=== PATIENT | male | born 1955 | race African-American/Black ===

== ENCOUNTER 2023-04-05 09:25 | Outpatient (AMB) | payer MEDICARE, SELFPAY ==
[2023-04-05 09:43] VITALS: BMI 34.6
--- NOTE | 2023-04-05 09:43 | A.OFFVIS_ITS ---
Intake VS Expanded 04/05/23 09:43 04/10/23 12:13 Height 5 ft 11 in 5 ft 11 in Weight 248 lb 0.321 oz 248 lb BMI 34.6 34.6 Intake Visit Reasons: New DM/LVM HPI Nutrition Presentation Details Pt presents for MNT for T2DM . The Pt was referred by Edmar Olmos Food frequency Fish: 0 to once a month Fruits: 2-3 per day Vegetables: 2 servings per day Dairy: 0-2 servings per day Starches: Greater than 25 servings per day Beverages: Water, juices, stopped drinking sodas for while Physical activity daily life activities Alcohol/smoking: Denies Multivitamins: Not taking JUF-Oiipszj-Yw.Jeor Equation Height 5 ft 11 in Weight 248 lb Resting Metabolic Rate 1926.27 Calculated Activity Level Mild Activity Calories Needed to Maintain Weight 2648.62 Diagnosis Nutrition problem #1 food nutri know defi As related to (etiology) #1 diagnosis As evidenced by (sign/symptom) #1 no prior educ - nutri rec Monitoring/Goals Nutrition problem monitoring level of knowledge/skill and glucose, fasting Nutrition goal/outcome list 3 CHO foods and list 3 high fiber foods Outcome progress verbalized understanding Learning/Education Readiness to learn good Stages of change preparation Educational materials provided Yes Most Recent Diabetes Results: No Data to Display Assessment & Plan Assessment & Plan (1) T2DM (type 2 diabetes mellitus): Code(s): E11.9 - Type 2 diabetes mellitus without complications Plan: Weight: 113 kg Est kcal needs as per MSJ: 2600 (40% carb, 30% protein/fat) Est fluid needs as per 30 ml/d: 3400 Est prot per day as per 1 g/kg bw: 113 Recommend fiber intake : 8-10 g per day and gradually increase to 25-28 g per day for women and 35-38 g for men or as tolerated Recommend sodium intake per day : less than 2000 mg Educated patient on: ( R = reviewed V = verbalizes understanding N/R = needs review N/A = not applicable * Food sources of carbohydrate, adequate serving sizes and its role in various health conditions: R * Differences between complex carbohydrates a simple carbohydrates, role of fiber in diet: R * Differences between types of fats and role in diet (mono on saturated fat fatty acids, saturated fatty acids, trans fats): NR * Food sources of sodium in salt and healthy modifications for heart health in kidney health: NR * Vitamins and minerals: NR * Healthy plate method concept: R * Physical activity: Benefits a precaution: R * Hypoglycemia protocol (rule of 15): NR * Dietary prevention of Hyperglycemia: R Patient Instructions: Work on reducing total carbohydrate at mealtime to less than 90 g following healthy plate method Practice mindful eating Keep hydrated by drinking water with meals and snacks See meal plan for ideas Coding Level of Care Code Nutr Indiv Intake (91267) Diagnoses T2DM (type 2 diabetes mellitus) E11.9 Time Spent (min) 30
[2023-04-10 12:13] VITALS: BMI 34.6
== END 2023-04-05 10:14 | disposition home or self-care (01) ==
PROVIDERS: PCP Internal Medicine; Visit Provider Dietitian, Registered
DX: E11.9 Type 2 diabetes mellitus without complications (principal)

== ENCOUNTER → 2023-04-05 09:25 | Outpatient (BNVA) | payer MEDICARE, SELFPAY | PROVIDERS: PCP Internal Medicine; Visit Provider Dietitian, Registered | DX: E11.9 Type 2 diabetes mellitus without complications (principal) | CPT/HCPCS: 97802 ==

== ENCOUNTER 2023-04-26 09:26 | Outpatient (AMB) | payer MEDICARE, SELFPAY ==
--- NOTE | 2023-04-26 09:28 | A.OFFVIS_ITS ---
Intake VS Expanded 04/26/23 09:32 05/02/23 14:18 Height 5 ft 11 in 5 ft 11 in Weight 240 lb 1.334 oz 240 lb BMI 33.5 33.5 Intake Visit Reasons: DM/LVM Medication List - Last Reconciled 05/02/[address], LDN aspirin (Adult Low Dose Aspirin) 81 mg PO DAILY hydrochlorothiazide 25 mg PO QDAY labetalol 200 mg PO BID lisinopril 40 mg PO DAILY metformin ER 500 mg PO DAILY rosuvastatin 20 mg PO DAILY vitamin E (dl, acetate) 45 mg PO DAILY HPI Nutrition Presentation Details Pt presents for MNT f/u for T2DM Pt did not bring glucometer to this appt. Pt reports working on reducing amount of starches/sugars Reports choosing low sugar beverages. B: coffee or crossaint with ham/egg/cheese or oatmeal with water and fruit L: baked chicken sand, small fries , diet soda d: pasta with chicken and salad, water snack: yogurts, chips, cracker w peanut butter physical activity : active at work on his fee [employer] Equation Height 5 ft 11 in Weight 240 lb Resting Metabolic Rate 1890.02 Calculated Activity Level Mild Activity Calories Needed to Maintain Weight 2598.78 Most Recent Diabetes Results: No Data to Display [facility] Medical History (Updated 05/02/23 @ 14:[address], LDN) Hyperlipidemia Hypertension Assessment & Plan Assessment & Plan (1) T2DM (type 2 diabetes mellitus): Comment: A1c at 8.9% on 01/2023), 8 lb weight loss since 03/2023( 6 wks) via diet modifications Code(s): E11.9 - Type 2 diabetes mellitus without complications Plan: Weight: 113 kg (03/2023), 109 kg (04/2023) Est kcal needs as per MSJ: 2600 (40% carb, 30% protein/fat) Est fluid needs as per 30 ml/d: 3400 Est prot per day as per 1 g/kg bw: 113 Recommend fiber intake : 8-10 g per day and gradually increase to 25-28 g per day for women and 35-38 g for men or as tolerated Recommend sodium intake per day : less than 2000 mg Educated patient on: ( R = reviewed V = verbalizes understanding N/R = needs review N/A = not applicable * Food sources of carbohydrate, adequate serving sizes and its role in various health conditions: R * Differences between complex carbohydrates a simple carbohydrates, role of fiber in diet: R * Differences between types of fats and role in diet (mono on saturated fat fatty acids, saturated fatty acids, trans fats): NR * Food sources of sodium in salt and healthy modifications for heart health in kidney health: R * Vitamins and minerals: R * Healthy plate method concept: R * Physical activity: Benefits a precaution: R * Hypoglycemia protocol (rule of 15): NR * Dietary prevention of Hyperglycemia: R , V Patient Instructions: Continue working on following healthy plate method , reducing on sugars/portion sizes of starches , total carb at meal to less than 80 g (3 meal/d) Choose low sodium food options , discussed and list of foods/meal options written and provided Monitor your blood sugar, fasting and 2 hours after a meal , bring to glucometer with you to your next appointment. Coding Level of Care Code Nutr Indiv Subseq (07949) Diagnoses T2DM (type 2 diabetes mellitus) E11.9 Time Spent (min) 30
[2023-04-26 09:32] VITALS: BMI 33.5
[2023-05-02 14:18] VITALS: BMI 33.5
== END 2023-04-26 10:09 | disposition home or self-care (01) ==
PROVIDERS: PCP Internal Medicine; Visit Provider Dietitian, Registered
DX: E11.9 Type 2 diabetes mellitus without complications (principal)

== ENCOUNTER → 2023-04-26 09:26 | Outpatient (BNVA) | payer MEDICARE, SELFPAY | PROVIDERS: PCP Internal Medicine; Visit Provider Dietitian, Registered | DX: E11.9 Type 2 diabetes mellitus without complications (principal) | CPT/HCPCS: 97803 ==

== ENCOUNTER 2023-06-07 08:56 | Outpatient (AMB) | payer MEDICARE, SELFPAY ==
[2023-06-07 09:08] VITALS: BMI 33.5
--- NOTE | 2023-06-07 09:08 | A.OFFVIS_ITS ---
Intake VS Expanded 06/07/23 09:08 Height 5 ft 11 in Weight 240 lb 1.334 oz BMI 33.5 Intake Visit Reasons: DM/LVM HPI Nutrition Presentation Details Pt presents for MNT f/u for T2DM Pt reports having 3 meals a day, watching portion sizes of starches and reducing on fried foods. Pt reports keeping hydrated , has 16 oz - water, 4 times /day + tea and 2 cup coffee Working on reducing fried starches - opting for baking instead Including non starchy vegetables daily 4 serving /d Physical activity: 30 minutes day - walking Pt reports FBG range from 120-130s and post meals are in the 100 range. Pt reports feeling good. Has questions regarding sodium Most Recent Diabetes Results: No Data to Display [facility] Medical History (Updated 06/07/23 @ 09:[address], LDN) Hyperlipidemia Hypertension Assessment & Plan Assessment & Plan (1) T2DM (type 2 diabetes mellitus): Comment: A1c at 8.9% on 01/2023), Code(s): E11.9 - Type 2 diabetes mellitus without complications Plan: Weight: 113 kg (03/2023), 109 kg (04/2023), 109 kg (05/2023) Est kcal needs as per MSJ: 2600 (40% carb, 30% protein/fat) Est fluid needs as per 30 ml/d: 3400 Est prot per day as per 1 g/kg bw: 113 Recommend fiber intake : 8-10 g per day and gradually increase to 25-28 g per day for women and 35-38 g for men or as tolerated Recommend sodium intake per day : less than 2000 mg Educated patient on: ( R = reviewed V = verbalizes understanding N/R = needs review N/A = not applicable * Food sources of carbohydrate, adequate serving sizes and its role in various health conditions: R , V * Differences between complex carbohydrates a simple carbohydrates, role of fiber in diet: R , V * Differences between types of fats and role in diet (mono on saturated fat fatty acids, saturated fatty acids, trans fats): NR * Food sources of sodium in salt and healthy modifications for heart health in kidney health: R, V * Vitamins and minerals: R * Healthy plate method concept: R , V * Physical activity: Benefits a precaution: R * Hypoglycemia protocol (rule of 15): R * Dietary prevention of Hyperglycemia: R , V Patient Instructions: Work on reducing on highly processed foods, high salt/sodium - Aim at reaching less than 600 mg of Na per meals and less than 100 mg as snack Keep hydrated by having water with meals and snacks continue working on reducing on fried/fried starches. Try evening exercise routine which may help with better morning blood sugar levels Follow rule of 15 if developing low blood sugar and reports any low blood sugar reactions to your doctor for further assessment. Coding Level of Care Code Nutr Indiv Subseq (63809) Diagnoses T2DM (type 2 diabetes mellitus) E11.9 Time Spent (min) 30
== END 2023-06-07 09:50 | disposition home or self-care (01) ==
PROVIDERS: PCP Internal Medicine; Visit Provider Dietitian, Registered
DX: E11.9 Type 2 diabetes mellitus without complications (principal)

== ENCOUNTER → 2023-06-07 08:56 | Outpatient (BNVA) | payer MEDICARE, SELFPAY | PROVIDERS: PCP Internal Medicine; Visit Provider Dietitian, Registered | DX: E11.9 Type 2 diabetes mellitus without complications (principal) | CPT/HCPCS: 97803 ==

== ENCOUNTER 2023-12-13 08:48 | Outpatient (AMB) | payer MEDICARE, SELFPAY ==
[2023-12-13 09:02] VITALS: BMI 31.8
--- NOTE | 2023-12-13 09:02 | A.OFFVIS_ITS ---
VS Expanded 12/13/23 09:02 Height 5 ft 11 in Weight 227 lb 15.327 oz BMI 31.8 Intake Visit Reasons: T2DM/LVM Nutrition Presentation Details: Pt presents for MNT f/u for T2DM Pt reports feeling great, working on meal planning. Pt 's A1c is at 6.2 on 07/2023 (from 8%) Pt reports keeping physically active food frequency fish: 2-3 times/wk dairy: 2-4 x/d veget: 3x/wk fruits 2-3 /day starches: choosing whole grain the majority of the time water : about 64 oz , BS Monitoring Most Recent Diabetes Results: No Data to Display [facility] Medical History (Updated 06/07/23 @ 09:56 by Shannon Herron, RD, LDN) Hyperlipidemia Hypertension Assessment & Plan Assessment & Plan (1) T2DM (type 2 diabetes mellitus): Comment: A1c at 8.9% on 01/2023), Code(s): E11.9 - Type 2 diabetes mellitus without complications Category: Medical Plan: Weight: 113 kg (03/2023), 109 kg (04/2023), 109 kg (05/2023), 103 kg (11/2023) Est kcal needs as per MSJ: 2600 (40% carb, 30% protein/fat) Est fluid needs as per 30 ml/d: 3400 Est prot per day as per 1 g/kg bw: 113 Recommend fiber intake : 8-10 g per day and gradually increase to 25-28 g per day for women and 35-38 g for men or as tolerated Recommend sodium intake per day : less than 2000 mg Educated patient on: ( R = reviewed V = verbalizes understanding N/R = needs review N/A = not applicable * Food sources of carbohydrate, adequate serving sizes and its role in various health conditions: R , V * Differences between complex carbohydrates a simple carbohydrates, role of fiber in diet: R , V * Differences between types of fats and role in diet (mono on saturated fat fatty acids, saturated fatty acids, trans fats): R * Food sources of sodium in salt and healthy modifications for heart health in kidney health: R, V * Vitamins and minerals: R * Healthy plate method concept: R , V * Physical activity: Benefits a precaution: R * Hypoglycemia protocol (rule of 15): R, V * Dietary prevention of Hyperglycemia: R , V Patient Instructions: continue working n following healthy palt emethod include omega 3 fatty acids Keep physically goal 150 min/wk Coding Level of Care Code Nutr Indiv Subseq (78578) Diagnoses T2DM (type 2 diabetes mellitus) E11.9 Time Spent (min) 30
== END 2023-12-13 09:26 | disposition home or self-care (01) ==
PROVIDERS: PCP Internal Medicine; Visit Provider Dietitian, Registered
DX: E11.9 Type 2 diabetes mellitus without complications (principal)

== ENCOUNTER → 2023-12-13 08:48 | Outpatient (BNVA) | payer MEDICARE, SELFPAY | PROVIDERS: PCP Internal Medicine; Visit Provider Dietitian, Registered | DX: E11.9 Type 2 diabetes mellitus without complications (principal); E78.5 Hyperlipidemia, unspecified; Z68.31 Body mass index [BMI] 31.0-31.9, adult; Z71.3 Dietary counseling and surveillance | CPT/HCPCS: 97803 ==